=== PATIENT | female | born 1955 | race Caucasian/White ===

== ENCOUNTER 2017-11-04 18:18 | Emergency (ER) | payer OTHER, SELFPAY ==
--- NOTE | 2017-11-04 18:18 | DT_ITS ---
This patient was seen during an EMR downtime November 04, 2017 - November 11, 2017. This patient may have a combination of paper and electronic documentation or all paper documentation. All documentation is viewable within the e-chart portion of [employer] for each patient visit.
--- NOTE | 2017-11-18 16:55 | ED.VISSUMM ---
- ER Visit Summary Date of Service: 11/18/17 Chief Complaint: Palpitations History of Present Illness: The patient is a [address] Tony High III. She reports that she is out mowing the lawn and was coughing, hacking, and gagging due to her allergies. She reports that she began having palpitations. She states that every 4-6 beats her heart would skip one B. Is not occurring now. Her last approximately 30 minutes. She denied any chest pain or shortness of breath with this. Of note the patient reports that she was changed from atenolol which she had been on for 15-20 years to lisinopril 6 days ago. Physical Examination: Vitals: Stable. Afebrile. General: Well-nourished and well-developed. Head: Normocephalic atraumatic. Neck: Supple, no lymphadenopathy. No JVD. Nontender. Cardiovascular: Regular rate and rhythm. No murmurs. Respiratory: No respiratory distress. Clear to auscultation bilaterally. Abdominal: Soft, nontender, nondistended, normal bowel sounds. No guarding, rebound, or peritoneal signs. Back: Nontender. Extremities: Nontender, no edema. Skin: Normal color, no rash. Neurologic: Alert and oriented ?3. Cranial nerves II through XII are intact. Normal strength and sensation. Psych: Normal affect. Test Results: EKG is sinus at 90 with no acute changes. The monitor reveals normal sinus rhythm in the 90s-100s. She has frequent PACs and PVCs. Emergency Department Course and Treatment: Patient had a prolonged wait prior to being seen in the emergency department and has been on a monitor for 3 hours without any unstable dysrhythmia. She refused any labs. Treatment Plan: I suspect the patient's palpitations are due to stopping the Lopressor and the exertion/allergy she was experiencing. She is instructed to restart her Lopressor and follow-up with Dr. Tony High III in 1 to days if not improving. Return to the emergency department for any worsening symptoms. Disposition: To home in improved and stable condition. Impression: 1. Palpitations. 2. PVCs/PACs. This note was generated with [email or web address] dictation software. It may contain incorrect words, spelling, and punctuation that were not noted in review of the chart prior to signing ED Disposition - Plan for ED Patient: Disposition: Home or Assisted Living Referrals: Tony High III, MD [Primary Care Provider] -
== END 2017-11-04 21:50 | disposition home or self-care (01) ==
PROVIDERS: Emergency Provider Emergency Medicine; Family Provider Family Medicine; PCP Family Medicine
DX: I49.3 Ventricular premature depolarization (principal); I49.1 Atrial premature depolarization; I10 Essential (primary) hypertension; K21.9 Gastro-esophageal reflux disease without esophagitis; Z85.3 Personal history of malignant neoplasm of breast
CPT/HCPCS: 93005; 99284; A4216

== ENCOUNTER → 2019-04-08 15:08 | Outpatient (CLI) | payer MEDICARE, SELFPAY ==
[2019-04-08 11:46] VITALS: BMI 28.8
[2019-04-14 14:53] LABS: HPV APTIMA, High Risk Negative (Negative)
== END ==
PROVIDERS: Family Provider Family Medicine; PCP Family Medicine; Visit Provider Nurse Practitioner Women's Health
DX: Z12.4 Encounter for screening for malignant neoplasm of cervix (principal)
CPT/HCPCS: 87624; 88175; G0145

== ENCOUNTER 2021-02-26 14:06 | Emergency (ER) | payer MEDICARE, SELFPAY ==
[2021-02-26 14:07] VITALS: BP 185/95; PULSE 82; RESP 14; TEMP 36.9; O2SAT 100; BMI 29.9
--- NOTE | 2021-02-26 14:11 | EDS_ITS ---
HPI History of Present Illness Chief Complaint: Allergic Reaction Detail of Chief Complaint: Bee sting to the tongue Informant: patient and spouse/S.O. Onset/Context/Timing Onset: Today Context: Sudden Onset Timing: Continuous Current Severity: Mild Maximum Severity: Mild Narrative Narrative: 65-year-old female history of breast cancer 10 years ago. Patient states she was stung by a bee on the left side of her tongue approximately 45 minutes ago. She denies any itching, hives or shortness of breath. She does have moderate swelling the left side of her tongue. She is never had an anaphylactic reaction before. Prior similar symptoms: No Recent Illness/Hospitalization: No PFSH PFSH Medical History History of breast cancer Hypertension Home Medications atenolol 25 mg tablet 25 mg PO DAILY 04/08/19 [History Last Taken Unknown] fexofenadine 180 mg tablet 180 mg PO DAILY 04/08/19 [History Last Taken Unknown] lisinopril 5 mg tablet 5 mg PO DAILY 04/08/19 [History Last Taken Unknown] prednisone 40 mg PO DAILY 2 Days #4 tab 02/26/21 [Rx Last Taken Unknown] Allergy/AdvReac Type Severity Reaction Status Date / Time bee venom protein (honey bee) AdvReac Swelling Verified 02/26/21 14:14 Family History Grandmother Cancer uterine Breast cancer Mother Rheumatoid arthritis Brother Diabetes Surgical History H/O cystoscopy H/O tubal ligation History of lumpectomy of right breast Hx laparoscopic cholecystectomy S/P foot surgery, right Social History Smoking Status: Never smoker alcohol intake: never substance use type: does not use caffeine: Yes what type of physical activity do you participate in: walking seatbelt use: always do you feel safe at home: Yes additional social history: [employer] Patient is retired ROS ROS ED ROS Narrative Denies recent illness. Review of Systems ROS Unobtainable: Denies due to encephalopathy Constitutional Constitutional ED: Denies fever(s) or subjective Eyes Eyes: Denies change in vision ENT ENT ED: Denies ear pain or sore throat Cardiovascular Cardiovascular: Denies chest pain or palpitations Respiratory/Chest Respiratory/Chest: Denies cough or dyspnea Gastrointestinal Gastrointestinal: Denies abdominal pain, diarrhea, nausea or vomiting Genitourinary Genitourinary ED: Denies dysuria Musculoskeletal Musculoskeletal: Denies myalgias Integumentary Denies rash Neurologic Neurologic: Denies headache(s) Psychiatric Psychiatric: Denies depression Endocrine Endocrinology: Denies polyuria Allergic/Immunologic Allergic/Immunologic ED: Reports tongue swelling; Denies mouth swelling or urticaria EXAM Physical Exam Narrative Exam Narrative: Six 5-year-old female. Vital signs are stable afebrile. H EENT exam shows moderate swelling left side of her tongue. No stinger in place. Lips are not swollen. Pharynx is unremarkable. No trouble breathing nor any drooling. Neck nontender. Lungs are clear. Heart regular rhythm. Rest of exam is unremarkable. No hives no rash. Const Vital Signs: 02/26/21 14:07 02/26/21 15:07 Temperature 98.5 F Temperature Source Temporal Pulse Rate 82 68 Respiratory Rate 14 12 Blood Pressure 185/95 H 174/82 H Blood Pressure Mean 125 112 Pulse Ox 100 100 Oxygen Delivery Method Room Air Room Air Positive well nourished and well developed; Negative for obese, cachectic, contractures or unkempt General Appearance ED: well developed and NAD; Negative for unkempt, cachectic or contractures Nutritional Appearance: Negative for cachectic or obese HEENT Reports moist mucous membranes HEENT Narrative: Swelling the left side of the tongue. Negative for trauma or tenderness Eyes PERRL and EOMs intact bilaterally Neck no lymphadenopathy, supple and no JVD General: Negative for tenderness Chest Wall inspection of chest normal and palpation of chest normal Resp normal respiratory effort and clear to auscultation bilaterally Effort and Inspection: pain with movement Auscultation: Negative for rales or rhonchi Cardio regular rate, regular rhythm, S1 normal heart sound, S2 normal heart sound and no murmurs GI normal to inspection, nondistended, normoactive bowel sounds, non-tender, non-distended and no masses Inspection: abdominal distention Auscultation: normoactive bowel sounds Palpation: soft; Negative for tender, guarding or rebound tenderness present Back/Spine no CVA tenderness General Back: Negative for CVA tenderness Extremity normal to inspection General Extremety ED: Negative for edema or tenderness General Extremity: Negative for edema Neuro oriented x3 and CN's II-XII intact bilaterally Sensorium / Orientation: alert; Negative for orientation impaired, lethargic or stuporous Motor Exam: strength 5/5 throughout Psych mental status grossly normal Appearance: Negative for unkempt Skin no rashes or lesions noted and no wounds Rashes: No rashes noted MDM MDM MDM Narrative Medical decision making narrative: Patient with a localized allergic reaction of bee sting to her tongue. She is not having an anaphylactic reaction. This occurred 45 minutes ago. She will be treated with IV Solu-Medrol, Benadryl and Pepcid and watch closely. Repeat exam patient is doing well at 2:40 PM. Her tongue swelling is no worse. She is in no distress. Also doing well at 3:15 PM the tongue swelling is actually improved. She and her feel comfortable going home. Discharge Plan Triage Chief Complaint: Allergic Reaction ED Provider: Eddie Gillette Dx/Rx/DC Orders Clinical Impression: Allergic reaction to bee sting Instructions: ED Insect Sting, Local Reaction Prescriptions: New prednisone 20 mg tablet 40 mg PO DAILY 2 Days Qty: 4 RF: 0 No Action lisinopril 5 mg tablet 5 mg PO DAILY RF: 0 atenolol 25 mg tablet 25 mg PO DAILY RF: 0 fexofenadine [Kelly Allergy] 180 mg tablet 180 mg PO DAILY RF: 0 Primary Care Provider: Jame Corbin Referrals: Tony High III, MD [STAFF PHYSICIAN] - As Needed Activity Restrictions/Additional Instructions: Ice to your tongue. Motrin for pain and swelling. Prednisone next 2 days. Return if a lot worse swelling, trouble breathing or swallowing. You may also use Benadryl daily. Disposition Disposition: Home, Self Care
[2021-02-26] MEDS: MethylPREDNISolone 125 MG/2 ML Vial IV (14:13)
[2021-02-26] MEDS: DiphenhydrAMINE 50 MG/ML Syringe 25 MG IV (14:13)
[2021-02-26] MEDS: Famotidine 200 MG/20 ML MDV 20 MG in 0.9% Normal Saline (Pres. free 8 ML 300 MG IV (14:24)
[2021-02-26 15:07] VITALS: BP 174/82; PULSE 68; RESP 12; O2SAT 100
[2021-02-26 15:28] VITALS: BP 174/82; PULSE 68; RESP 12; TEMP 36.9; O2SAT 100
== END 2021-02-26 15:30 | disposition home or self-care (01) ==
PROVIDERS: Emergency Provider Emergency Medicine; PCP Family Medicine
DX: T63.441A Toxic effect of venom of bees, accidental (unintentional), initial encounter (principal); R22.0 Localized swelling, mass and lump, head; Y92.9 Unspecified place or not applicable; I10 Essential (primary) hypertension; Z79.899 Other long term (current) drug therapy; Z85.3 Personal history of malignant neoplasm of breast
CPT/HCPCS: 96374; 96375; 99284; A4216; J3490